=== PATIENT | female | born 1955 | race Two or more races ===

== ENCOUNTER 2023-01-22 11:00 | Inpatient (IN) | payer OTHER ==
[~2023-01-22] VITALS: Ht 152.4 cm; Wt 57.2 kg
[2023-01-22] MEDS ORDERED: TENORMIN25 MG PO (12:33)
[2023-01-22] MEDS ORDERED: ATACAND16 MG PO (12:33)
[2023-01-22] MEDS ORDERED: LIPI PO (12:34)
[2023-01-22] MEDS ORDERED: SYNTHROID112 MCG PO (12:34)
[2023-01-22] MEDS ORDERED: XIGDUO XR 10 M1 EAC1 PO (12:35)
[2023-01-28 11:25] LABS: HEMATOCRIT 35.3 % (36.0-45.00); HEMOGLOBIN 11.4 g/dL (12.0-15.00); MEAN CELL VOLUME 78.7 fL (80.00-100.00); MEAN CORPUSCULAR HEMOGLOBIN 25.5 pg (27.00-32.0); MEAN CORPUSCULAR HGB CONC 32.4 g/dl (32.0-36.0); PLATELET COUNT 234 K/uL (150-450); RED BLOOD COUNT 4.49 M/uL (4.00-6.00)
[2023-01-28 12:05] LABS: ALBUMIN 3.2 gm/dL (3.4-5.0); CALCIUM 8.3 mg/dL (8.5-10.1); CREATININE SERUM 0.71 mg/dL (0.55-1.02); GFR 81.62; MAGNESIUM 2.1 mg/dL (1.8-2.4); POTASSIUM 4.17 mEq/L (3.5-5.1)
[2023-01-29 06:45] LABS: HEMATOCRIT 35.4 % (36.0-45.00); HEMOGLOBIN 11.6 g/dL (12.0-15.00); MEAN CORPUSCULAR HEMOGLOBIN 25.9 pg (27.00-32.0); MEAN CORPUSCULAR HGB CONC 32.7 g/dl (32.0-36.0); PLATELET COUNT 212 K/uL (150-450); RED BLOOD COUNT 4.48 M/uL (4.00-6.00); RED CELL DISTRIBUTION WIDTH 15.9 % (11.5-14.5)
[2023-01-29 07:01] LABS: ALBUMIN 3.1 gm/dL (3.4-5.0); CALCIUM 8.7 mg/dL (8.5-10.1); CREATININE SERUM 0.73 mg/dL (0.55-1.02); GFR 79.05; MAGNESIUM 2.3 mg/dL (1.8-2.4); PHOSPHOROUS 2.1 mg/dL (2.5-4.9); POTASSIUM 5.02 mEq/L (3.5-5.1)
[2023-01-31] MEDS ORDERED: NEURONTIN300 MG PO (15:41)
[2023-01-31] MEDS ORDERED: ACETAMINOPHEN500 M2 PO (15:41)
== END 2023-01-31 18:22 | disposition home or self-care (01) | DRG 331 ==
LOC: O/R 01-28 05:51 → SURG 01-28 05:51 → SURH 01-28 11:00 → SURG 01-31 18:22
PROVIDERS: ADMIT Surgery; ATTEND Surgery
PROC: 07BB4ZZ Excision of Mesenteric Lymphatic, Percutaneous Endoscopic Approach (ICD-10-PCS; 2023-01-28)
PROC: 0DBU4ZZ Excision of Omentum, Percutaneous Endoscopic Approach (ICD-10-PCS; 2023-01-28)
PROC: 0DTF4ZZ Resection of Right Large Intestine, Percutaneous Endoscopic Approach (ICD-10-PCS; principal; 2023-01-28 16:00)
DX: D12.2 Benign neoplasm of ascending colon (principal); D12.0 Benign neoplasm of cecum; R59.0 Localized enlarged lymph nodes; K57.30 Diverticulosis of large intestine without perforation or abscess without bleeding; I10 Essential (primary) hypertension; E03.9 Hypothyroidism, unspecified

== ENCOUNTER 2023-05-05 12:14 | Inpatient (IN) | payer OTHER ==
[~2023-05-05] VITALS: Wt 544.3 kg
[~2023-05-05 12:14] MED LIST: ACETAMINOPHEN500 M2 PO; ATACAND16 MG PO; LIPI PO; NEURONTIN300 MG PO; SYNTHROID112 MCG PO; TENORMIN25 MG PO; XIGDUO XR 10 M1 EAC1 PO
[2023-05-05] MEDS ORDERED: MORPHINE SULFATE 4 MG/ML CARTRIDGE IV ONE (14:45)
[2023-05-05] MEDS ORDERED: 0.9 % SODIUM CHLORIDE 500 ML IV SCH (14:45)
[2023-05-05 15:29] LABS: HEMATOCRIT 40.8 % (36.0-45.00); HEMOGLOBIN 13.2 g/dL (12.0-15.00); MEAN CELL VOLUME 78.2 fL (80.00-100.00); MEAN CORPUSCULAR HEMOGLOBIN 25.3 pg (27.00-32.0); MEAN CORPUSCULAR HGB CONC 32.3 g/dl (32.0-36.0); PLATELET COUNT 256 K/uL (150-450); RED BLOOD COUNT 5.22 M/uL (4.00-6.00); RED CELL DISTRIBUTION WIDTH 15.5 % (11.5-14.5)
[2023-05-05 15:52] LABS: ALBUMIN 3.6 gm/dL (3.4-5.0); BILIRUBIN TOTAL 1.85 mg/dL (0.3-1.2); BILIRUBIN,CONJUGATED 0.62 mg/dL (0.0-0.2); BILIRUBIN,UNCONJUGATED 1.23 mg/dL (0.0-0.6); CALCIUM 8.9 mg/dL (8.5-10.1); CREATININE SERUM 0.89 mg/dL (0.55-1.02); GFR 62.89; GLOBULINA 3.7 G/DL (2.4-3.5); POTASSIUM 4.75 mEq/L (3.5-5.1); TOTAL PROTEIN 7.3 gm/dL (6.4-8.2)
[2023-05-05 20:14] LABS: URINE APPEARANCE Clear; URINE BILIRRUBIN Negative (NEGATIVE); URINE BLOOD Small; URINE COLOR Yellow; URINE LEUKOCYTE Negative; URINE NITRATE Negative; URINE PROTEIN 30 (NEGATIVE); URINE UROBILINOGEN 0.2 E.U./dl
[2023-05-05 20:17] LABS: URINE BACTERIA 62.9 uL (0.0-1933); URINE EPITHELIAL CELLS 20.6 uL (0.0-38.8); URINE RBC 9.7 uL (0.0-20.8); URINE WBC 7.8 uL (0.0-23.2)
[2023-05-05 20:27] LABS: URINE GLUCOSE >=1000 MG/DL (NEGATIVE)
[2023-05-05] MEDS ORDERED: PIPERACILLIN/TAZOBACTAM SODIUM 3.375 GM VIAL IV ONE (21:00)
[2023-05-05 21:36] LABS: INR 1.2; PARTIAL THROMBOPLASTIN TIME 28.5 SECONDS (22.0-34.0); PROTHROMBIN TIME 12.4 SECONDS (9.0-11.5)
[2023-05-05] MEDS ORDERED: DEXTROSE 50 % IN WATER 0.5 G/ML DISP.SYRIN IV PRN (22:15)
[2023-05-05] MEDS ORDERED: MEPERIDINE HCL/PF 25 MG/ML VIAL IM PRN (22:15)
[2023-05-05] MEDS ORDERED: 0.9 % SODIUM CHLORIDE 1,000 ML IV SCH (22:15)
[2023-05-05] MEDS ORDERED: ENALAPRILAT DIHYDRATE 1.25 MG/ML VIAL IV PRN (22:15)
[2023-05-05] MEDS ORDERED: ONDANSETRON HCL 4 MG in 0.9 % SODIUM CHLORIDE 50 ML IV PRN (22:15)
[2023-05-05] MEDS ORDERED: INSULIN LISPRO 1,000 UNIT/10 ML UNITS SUBCUTANEO PRN (22:15)
[2023-05-06] MEDS ORDERED: PIPERACILLIN/TAZOBACTAM SODIUM 3.375 GM in DEXTROSE 5 % IN WATER 100 ML IV SCH
[2023-05-06] MEDS ORDERED: LEVOTHYROXINE SODIUM 112 MCG TABLET PO SCH (06:00)
[2023-05-06] MEDS ORDERED: FAMOTIDINE/PF 20 MG/2 ML VIAL ONE (07:34)
[2023-05-06] MEDS ORDERED: FAMOTIDINE/PF 20 MG in 0.9 % SODIUM CHLORIDE 8 ML IV PUSH SCH (09:00)
[2023-05-06 15:03] LABS: CALCIUM 8.2 mg/dL (8.5-10.1); CREATININE SERUM 0.66 mg/dL (0.55-1.02); GFR 88.8; POTASSIUM 3.46 mEq/L (3.5-5.1)
[2023-05-06] MEDS ORDERED: ATENOLOL 25 MG TABLET PO SCH (17:00)
[2023-05-06] MEDS ORDERED: AA 4.25%/CAL/LYTES/DEXT 5% 1,000 ML PERIFERAL SCH (17:00)
[2023-05-06] MEDS ORDERED: ENOXAPARIN SODIUM 40 MG/0.4 ML SYRINGE SUBCUTANEO SCH (17:00)
[2023-05-07] MEDS ORDERED: MORPHINE SULFATE 4 MG/ML CARTRIDGE IV SCH
[2023-05-07] MEDS ORDERED: ACETAMINOPHEN 500 MG GEL..CAP PO SCH
[2023-05-07 07:17] LABS: ALBUMIN 2.5 gm/dL (3.4-5.0); BILIRUBIN TOTAL 0.92 mg/dL (0.3-1.2); CREATININE SERUM 0.7 mg/dL (0.55-1.02); GFR 82.97; GLOBULINA 3.3 G/DL (2.4-3.5); MAGNESIUM 2.6 mg/dL (1.8-2.4); POTASSIUM 4.31 mEq/L (3.5-5.1); TOTAL PROTEIN 5.8 gm/dL (6.4-8.2)
[2023-05-07 07:25] LABS: HEMATOCRIT 38.4 % (36.0-45.00); HEMOGLOBIN 12.5 g/dL (12.0-15.00); MEAN CELL VOLUME 77.6 fL (80.00-100.00); MEAN CORPUSCULAR HEMOGLOBIN 25.4 pg (27.00-32.0); MEAN CORPUSCULAR HGB CONC 32.7 g/dl (32.0-36.0); RED BLOOD COUNT 4.95 M/uL (4.00-6.00); RED CELL DISTRIBUTION WIDTH 15.8 % (11.5-14.5)
[2023-05-07 08:09] LABS: C-REACTIVE PROTEIN 28.1 MG/DL (0.00-0.29); PHOSPHOROUS 1.7 mg/dL (2.5-4.9)
[2023-05-07 08:15] LABS: PLATELET COUNT 256 K/uL (150-450)
[2023-05-07] MEDS ORDERED: POTASSIUM PHOS,M-BASIC-D-BASIC 3 MM/ML VIAL IV NR (09:39)
[2023-05-07] MEDS ORDERED: LIDOCAINE HCL 1%/Epi 20ML VIAL IJ ONE (11:53)
[2023-05-07] MEDS ORDERED: INSULIN REGULAR, HUMAN 300 UNITS/3 ML UNITS ONE (11:53)
[2023-05-07] MEDS ORDERED: BUPIVACAINE HCL/PF 0.5% 30ML ML ONE (11:53)
[2023-05-07] MEDS ORDERED: NITROGLYCERIN 0.2 MG/HR PATCH.TD24 TD ONE ×2 (12:02→14:15)
[2023-05-07] MEDS ORDERED: MEROPENEM 500 MG/VIAL VIAL IV SCH (14:00)
[2023-05-07] MEDS ORDERED: SUGAMMADEX SODIUM 200 MG/2 ML VIAL IV ONE ×2 (14:29→15:15)
[2023-05-07] MEDS ORDERED: DEXTROSE 50 % IN WATER 0.5 G/ML DISP.SYRIN IV PRN (15:15)
[2023-05-07] MEDS ORDERED: MORPHINE SULFATE 4 MG/ML CARTRIDGE IV PRN (15:15)
[2023-05-07] MEDS ORDERED: ONDANSETRON HCL 2 MG/ML VIAL IV PRN (15:15)
[2023-05-07] MEDS ORDERED: VANCOMYCIN HCL 5 MG/ML REDILUIDO IV SCH (17:00)
[2023-05-07 17:36] LABS: HEMATOCRIT 40.7 % (36.0-45.00); HEMOGLOBIN 13.2 g/dL (12.0-15.00); MEAN CELL VOLUME 78.2 fL (80.00-100.00); MEAN CORPUSCULAR HEMOGLOBIN 25.4 pg (27.00-32.0); MEAN CORPUSCULAR HGB CONC 32.4 g/dl (32.0-36.0); PLATELET COUNT 307 K/uL (150-450); RED BLOOD COUNT 5.21 M/uL (4.00-6.00); RED CELL DISTRIBUTION WIDTH 16.1 % (11.5-14.5)
[2023-05-07] MEDS ORDERED: FAMOTIDINE/PF 20 MG/2 ML VIAL ONE ×2 (17:40→20:52)
[2023-05-07 18:24] LABS: ALBUMIN 1.9 gm/dL (3.4-5.0); CALCIUM 7.5 mg/dL (8.5-10.1); CREATININE SERUM 0.86 mg/dL (0.55-1.02); GFR 65.42; MAGNESIUM 2.2 mg/dL (1.8-2.4); PHOSPHOROUS 2.8 mg/dL (2.5-4.9); POTASSIUM 3.69 mEq/L (3.5-5.1)
[2023-05-07] MEDS ORDERED: FAMOTIDINE/PF 20 MG/2 ML VIAL IV PUSH SCH (21:00)
[2023-05-08] MEDS ORDERED: VANCOMYCIN HCL 1,000 MG VIAL ONE (04:37)
[2023-05-08] MEDS ORDERED: FAMOTIDINE/PF 20 MG/2 ML VIAL ONE ×3 (04:38→16:56)
[2023-05-08 07:18] LABS: HEMATOCRIT 39.4 % (36.0-45.00); HEMOGLOBIN 12.8 g/dL (12.0-15.00); MEAN CELL VOLUME 76.8 fL (80.00-100.00); MEAN CORPUSCULAR HGB CONC 32.6 g/dl (32.0-36.0); PLATELET COUNT 224 K/uL (150-450); RED BLOOD COUNT 5.13 M/uL (4.00-6.00)
[2023-05-08 07:38] LABS: ALBUMIN 1.5 gm/dL (3.4-5.0); CALCIUM 7.2 mg/dL (8.5-10.1); CREATININE SERUM 0.94 mg/dL (0.55-1.02); GFR 59.04; MAGNESIUM 2.1 mg/dL (1.8-2.4); POTASSIUM 3.84 mEq/L (3.5-5.1)
[2023-05-08 08:16] LABS: PHOSPHOROUS 1.4 mg/dL (2.5-4.9)
[2023-05-08] MEDS ORDERED: RINGERS SOLUTION,LACTATED 1,000 ML IV SCH (08:30)
[2023-05-08] MEDS ORDERED: KETOROLAC TROMETHAMINE 30 MG VIAL ONE (10:29)
[2023-05-08] MEDS ORDERED: INSULIN LISPRO 1,000 UNIT/10 ML UNITS SUBCUTANEO ONE ×2 (11:50→19:47)
[2023-05-08] MEDS ORDERED: POTASSIUM PHOS M BASIC D BASIC IV ONE (12:00)
[2023-05-08] MEDS ORDERED: AA 4.25%/CAL/LYTES/DEXT 5% 1,000 ML PERIFERAL SCH (17:00)
[2023-05-08] MEDS ORDERED: ENOXAPARIN SODIUM 40 MG/0.4 ML SYRINGE SUBCUTANEO SCH (17:00)
[2023-05-09 06:56] LABS: HEMATOCRIT 32.1 % (36.0-45.00); HEMOGLOBIN 10.4 g/dL (12.0-15.00); MEAN CELL VOLUME 77.3 fL (80.00-100.00); MEAN CORPUSCULAR HGB CONC 32.4 g/dl (32.0-36.0); PLATELET COUNT 171 K/uL (150-450); RED BLOOD COUNT 4.15 M/uL (4.00-6.00); RED CELL DISTRIBUTION WIDTH 16.2 % (11.5-14.5)
[2023-05-09] MEDS ORDERED: SODIUM CHLORIDE 0.45 % 1,000 ML IV SCH (07:15)
[2023-05-09 07:31] LABS: ALBUMIN 1.4 gm/dL (3.4-5.0); BILIRUBIN TOTAL 0.5 mg/dL (0.3-1.2); CALCIUM 7.6 mg/dL (8.5-10.1); CREATININE SERUM 0.57 mg/dL (0.55-1.02); GFR 105.17; MAGNESIUM 2.8 mg/dL (1.8-2.4); POTASSIUM 3.62 mEq/L (3.5-5.1); TOTAL PROTEIN 4.4 gm/dL (6.4-8.2)
[2023-05-09 07:52] LABS: PHOSPHOROUS 1.3 mg/dL (2.5-4.9)
[2023-05-09] MEDS ORDERED: DEXTROSE 5 % IN WATER 1,000 ML IV SCH (08:00)
[2023-05-09] MEDS ORDERED: ENOXAPARIN SODIUM 40 MG/0.4 ML SYRINGE SUBCUTANEO SCH (09:00)
[2023-05-09] MEDS ORDERED: CHLORHEXIDINE GLUCONATE 120 ML BOTTLE TOP ONE (09:34)
[2023-05-09] MEDS ORDERED: POTASSIUM PHOS,M-BASIC-D-BASIC 3 MM/ML VIAL IV NR (10:37)
[2023-05-09] MEDS ORDERED: VANCOMYCIN HCL 1,000 MG VIAL IV SCH (17:00)
[2023-05-10] MEDS ORDERED: MORPHINE SULFATE 4 MG/ML VIAL IV ONE (04:30)
[2023-05-10] MEDS ORDERED: MORPHINE SULFATE 4 MG/ML VIAL IV PRN (19:15)
[2023-05-10] MEDS ORDERED: MORPHINE SULFATE 2 MG/ML CARTRIDGE IV PRN (20:00)
[2023-05-11 07:27] LABS: ALBUMIN 1.4 gm/dL (3.4-5.0); BILIRUBIN TOTAL 0.58 mg/dL (0.3-1.2); CALCIUM 7.5 mg/dL (8.5-10.1); CREATININE SERUM 0.47 mg/dL (0.55-1.02); GFR 131.39; GLOBULINA 2.7 G/DL (2.4-3.5); TOTAL PROTEIN 4.1 gm/dL (6.4-8.2)
[2023-05-11 08:01] LABS: POTASSIUM 2.98 mEq/L (3.5-5.1)
[2023-05-11] MEDS ORDERED: POTASSIUM CHLORIDE 20MEQ/100ML H2O PB IV ONE (11:20)
[2023-05-12 06:14] LABS: HEMATOCRIT 28.6 % (36.0-45.00); HEMOGLOBIN 9.4 g/dL (12.0-15.00); MEAN CELL VOLUME 76.1 fL (80.00-100.00); MEAN CORPUSCULAR HEMOGLOBIN 25.1 pg (27.00-32.0); MEAN CORPUSCULAR HGB CONC 32.9 g/dl (32.0-36.0); PLATELET COUNT 256 K/uL (150-450); RED BLOOD COUNT 3.76 M/uL (4.00-6.00); RED CELL DISTRIBUTION WIDTH 15.6 % (11.5-14.5)
[2023-05-12 06:57] LABS: ALBUMIN 1.6 gm/dL (3.4-5.0); BILIRUBIN TOTAL 0.57 mg/dL (0.3-1.2); BILIRUBIN,CONJUGATED 0.13 mg/dL (0.0-0.2); BILIRUBIN,UNCONJUGATED 0.44 mg/dL (0.0-0.6); CALCIUM 7.9 mg/dL (8.5-10.1); CHOL HDL RATIO 5.6 (0-5.0); CREATININE SERUM 0.52 mg/dL (0.55-1.02); GFR 116.92; GLOBULINA 3.2 G/DL (2.4-3.5); MAGNESIUM 2.1 mg/dL (1.8-2.4); PHOSPHOROUS 2.5 mg/dL (2.5-4.9); TOTAL PROTEIN 4.8 gm/dL (6.4-8.2)
[2023-05-12 07:10] LABS: INR 1.04; PARTIAL THROMBOPLASTIN TIME 28.4 SECONDS (22.0-34.0); PROTHROMBIN TIME 10.9 SECONDS (9.0-11.5)
[2023-05-12 07:31] LABS: POTASSIUM 2.99 mEq/L (3.5-5.1)
[2023-05-12] MEDS ORDERED: POTASSIUM CHLORIDE/D5-0.45NACL 1,000 ML IV SCH (08:00)
[2023-05-12 08:40] LABS: UREA CLEARANCE 51.8 ML/MIN
[2023-05-12] MEDS ORDERED: FLUCONAZOLE 150 MG TABLET PO ONE (16:45)
[2023-05-12] MEDS ORDERED: HYOSCYAMINE SULFATE 0.125 MG TAB.SUBL SL SCH (17:00)
[2023-05-12] MEDS ORDERED: NYSTATIN 5 ML BLIST.PACK PO SCH (17:00)
[2023-05-13 07:06] LABS: ALBUMIN 1.6 gm/dL (3.4-5.0); CREATININE SERUM 0.47 mg/dL (0.55-1.02); GFR 131.39; POTASSIUM 3.17 mEq/L (3.5-5.1)
[2023-05-13] MEDS ORDERED: AMLODIPINE BESYLATE 5 MG TABLET PO SCH (09:00)
[2023-05-13] MEDS ORDERED: AMINO ACIDS/PROTEIN HYDROLYS 30 ML BLIST.PACK PO SCH (17:00)
[2023-05-14] MEDS ORDERED: PANTOPRAZOLE SODIUM 40 MG TABLET.DR PO SCH (09:00)
[2023-05-14] MEDS ORDERED: SUCRALFATE 1 G TABLET PO SCH (09:00)
[2023-05-14 13:11] LABS: ALBUMIN 1.9 gm/dL (3.4-5.0); CALCIUM 8.4 mg/dL (8.5-10.1); CREATININE SERUM 0.57 mg/dL (0.55-1.02); GFR 105.17; PHOSPHOROUS 2.5 mg/dL (2.5-4.9); POTASSIUM 3.98 mEq/L (3.5-5.1)
[2023-05-14] MEDS ORDERED: FUROsemide 20 MG/2 ML VIAL IV SCH (22:10)
[2023-05-15] MEDS ORDERED: AMINO ACIDS 1 EACH TABLET PO SCH (17:00)
[2023-05-16] MEDS ORDERED: TRAM1TAB98 PO (09:24)
[2023-05-16] MEDS ORDERED: CARAFATE1 GM PO (09:24)
[2023-05-16] MEDS ORDERED: PRILOSEC OTC20 MG PO (09:24)
== END 2023-05-16 13:14 | disposition home or self-care (01) | DRG 329 ==
LOC: ER 12:14 → SURG 22:17 → O/R 05-08 08:11 → ICU 05-08 23:10 → SURG 05-10 13:53
PROVIDERS: Emergency Medicine; General Practice; Internal Medicine; Internal Medicine Geriatric Medicine; Internal Medicine Infectious Disease; Internal Medicine Nephrology; ADMIT Surgery; ATTEND Surgery
PROC: 3E0436Z Introduction of Nutritional Substance into Central Vein, Percutaneous Approach (ICD-10-PCS; 2023-05-06)
PROC: 02HV33Z Insertion of Infusion Device into Superior Vena Cava, Percutaneous Approach (ICD-10-PCS; 2023-05-06)
PROC: 0DBK4ZZ Excision of Ascending Colon, Percutaneous Endoscopic Approach (ICD-10-PCS; 2023-05-07)
PROC: 0DBB4ZZ Excision of Ileum, Percutaneous Endoscopic Approach (ICD-10-PCS; 2023-05-07)
PROC: 0DJD0ZZ Inspection of Lower Intestinal Tract, Open Approach (ICD-10-PCS; 2023-05-07)
PROC: 0D9W0ZZ Drainage of Peritoneum, Open Approach (ICD-10-PCS; 2023-05-07)
PROC: 0D1B0Z4 Bypass Ileum to Cutaneous, Open Approach (ICD-10-PCS; 2023-05-07)
PROC: BW21Y0Z Computerized Tomography (CT Scan) of Abdomen and Pelvis using Other Contrast, Unenhanced and Enhanced (ICD-10-PCS; 2023-05-07)
PROC: 0DBL0ZZ Excision of Transverse Colon, Open Approach (ICD-10-PCS; principal; 2023-05-07 10:00)
DX: K91.89 Other postprocedural complications and disorders of digestive system (principal); K65.8 Other peritonitis; K57.20 Diverticulitis of large intestine with perforation and abscess without bleeding; K56.609 Unspecified intestinal obstruction, unspecified as to partial versus complete obstruction; K55.8 Other vascular disorders of intestine; E87.0 Hyperosmolality and hypernatremia; E87.6 Hypokalemia; I49.9 Cardiac arrhythmia, unspecified; R60.0 Localized edema; I10 Essential (primary) hypertension; E11.9 Type 2 diabetes mellitus without complications; E03.9 Hypothyroidism, unspecified; Z79.84 Long term (current) use of oral hypoglycemic drugs; Z79.4 Long term (current) use of insulin

== ENCOUNTER 2024-05-26 11:45 | Inpatient (IN) | payer OTHER ==
[~2024-05-26] VITALS: Ht 152.4 cm; Wt 53.5 kg
[~2024-05-26 11:45] MED LIST changes: +CARAFATE1 GM PO; +PRILOSEC OTC20 MG PO; +TRAM1TAB98 PO
[2024-06-01] MEDS ORDERED: CEFTRIAXONE SODIUM 2,000 MG VIAL IV ONE (14:00)
[2024-06-01] MEDS ORDERED: METRONIDAZOLE/SODIUM CHLORIDE 500 MG/100 ML PIGGYBACK IV ONE (14:00)
[2024-06-01] MEDS ORDERED: LIDOCAINE HCL 1%/EPINEPHRINE 20ML VIAL IJ ONE (14:00)
[2024-06-01] MEDS ORDERED: CHLORHEXIDINE GLUCONATE 120 ML BOTTLE TOP ONE (14:00)
[2024-06-01] MEDS ORDERED: BUPIVACAINE HCL 30 ML VIAL IJ ONE (14:00)
[2024-06-01] MEDS ORDERED: DEXTROSE 50 % IN WATER 0.5 G/ML DISP.SYRIN IV PRN ×2 (15:15→18:30)
[2024-06-01] MEDS ORDERED: ONDANSETRON HCL 2 MG/ML VIAL IV PRN (15:15)
[2024-06-01] MEDS ORDERED: OxyCODONE HCL 5 MG TABLET (ROXICODONE) PO PRN (15:15)
[2024-06-01] MEDS ORDERED: MORPHINE SULFATE 4 MG/ML CARTRIDGE IV PRN (15:15)
[2024-06-01] MEDS ORDERED: RINGERS SOLUTION,LACTATED 1,000 ML IV SCH (15:15)
[2024-06-01] MEDS ORDERED: MORPHINE SULFATE 4 MG/ML VIAL IV ONE ×2 (16:10→16:40)
[2024-06-01 16:59] LABS: HEMATOCRIT 45.3 % (36.0-45.00); HEMOGLOBIN 14.7 g/dL (12.0-15.00); MEAN CELL VOLUME 87.3 fL (80.00-100.00); MEAN CORPUSCULAR HEMOGLOBIN 28.3 pg (27.00-32.0); MEAN CORPUSCULAR HGB CONC 32.4 g/dl (32.0-36.0); PLATELET COUNT 249 K/uL (150-450); RED BLOOD COUNT 5.19 M/uL (4.00-6.00); RED CELL DISTRIBUTION WIDTH 13.8 % (11.5-14.5)
[2024-06-01] MEDS ORDERED: POLYETHYLENE GLYCOL 3350 17 GM BLIST.PACK PO SCH (17:00)
[2024-06-01] MEDS ORDERED: GABAPENTIN 300 MG CAPSULE PO SCH (17:00)
[2024-06-01 17:20] LABS: ALBUMIN 3.4 gm/dL (3.4-5.0); CREATININE SERUM 0.7 mg/dL (0.55-1.02); GFR 82.72; MAGNESIUM 1.7 mg/dL (1.8-2.4); PHOSPHOROUS 2.8 mg/dL (2.5-4.9); POTASSIUM 4.11 mEq/L (3.5-5.1)
[2024-06-01] MEDS ORDERED: INSULIN LISPRO 1,000 UNIT/10 ML UNITS SUBCUTANEO PRN (18:30)
[2024-06-01] MEDS ORDERED: ENALAPRILAT DIHYDRATE 1.25 MG/ML VIAL IV PRN (18:30)
[2024-06-01] MEDS ORDERED: ACETAMINOPHEN 500 MG GEL..CAP PO SCH (20:00)
[2024-06-01 20:58] LABS: ABG PH 7.361 (7.35-7.45); ABG PO2 74.1 mmHg (80-100); ABG pCO2 46.5 mmHg (35-45); BASE EXCESS -0.2 mmol/l; BICARBONATE 25.7 mmol/l (23-25); Tco2 27.2 mmol/l
[2024-06-01] MEDS ORDERED: CANDESARTAN CILEXETIL 16 MG TABLET PO SCH (21:00)
[2024-06-01] MEDS ORDERED: FAMOTIDINE/PF 20 MG/2 ML VIAL IV PUSH SCH (21:00)
[2024-06-01 21:20] LABS: allen test SATISFACTORY; puncture site RADIAL RIGHT
[2024-06-01 21:23] LABS: o2 21 %
[2024-06-02 00:03] VITALS: BP 101/56; O2SAT 95
[2024-06-02] MEDS ORDERED: SYNTHROID 112 MCG PO SCH (06:00)
[2024-06-02 07:37] LABS: HEMATOCRIT 40.9 % (36.0-45.00); HEMOGLOBIN 13.9 g/dL (12.0-15.00); MEAN CELL VOLUME 85.7 fL (80.00-100.00); MEAN CORPUSCULAR HEMOGLOBIN 29.1 pg (27.00-32.0); PLATELET COUNT 248 K/uL (150-450); RED BLOOD COUNT 4.77 M/uL (4.00-6.00); RED CELL DISTRIBUTION WIDTH 13.7 % (11.5-14.5)
[2024-06-02 08:03] LABS: CALCIUM 8.5 mg/dL (8.5-10.1); CREATININE SERUM 0.75 mg/dL (0.55-1.02); GFR 76.39; MAGNESIUM 1.8 mg/dL (1.8-2.4); PHOSPHOROUS 3.6 mg/dL (2.5-4.9); POTASSIUM 4.68 mEq/L (3.5-5.1)
[2024-06-02] MEDS ORDERED: ATENOLOL 25 MG TABLET PO SCH (09:00)
[2024-06-02] MEDS ORDERED: DEXTROSE 50 % IN WATER 0.5 G/ML DISP.SYRIN IV PRN (10:30)
[2024-06-02] MEDS ORDERED: INSULIN LISPRO 1,000 UNIT/10 ML UNITS SUBCUTANEO PRN (10:30)
[2024-06-02 14:28] VITALS: BP 143/75; O2SAT 99
[2024-06-02 16:00] VITALS: BP 114/52; O2SAT 98
[2024-06-02] MEDS ORDERED: ENOXAPARIN SODIUM 40 MG/0.4 ML SYRINGE SUBCUTANEO SCH (17:00)
[2024-06-03 00:24] VITALS: BP 98/61; O2SAT 90
[2024-06-03 06:44] LABS: HEMATOCRIT 35.6 % (36.0-45.00); HEMOGLOBIN 11.8 g/dL (12.0-15.00); MEAN CELL VOLUME 86.9 fL (80.00-100.00); MEAN CORPUSCULAR HEMOGLOBIN 28.8 pg (27.00-32.0); MEAN CORPUSCULAR HGB CONC 33.2 g/dl (32.0-36.0); PLATELET COUNT 199 K/uL (150-450); RED BLOOD COUNT 4.09 M/uL (4.00-6.00); RED CELL DISTRIBUTION WIDTH 14.3 % (11.5-14.5)
[2024-06-03 07:31] LABS: CALCIUM 8.3 mg/dL (8.5-10.1); CREATININE SERUM 0.77 mg/dL (0.55-1.02); GFR 74.11; PHOSPHOROUS 2.6 mg/dL (2.5-4.9); POTASSIUM 4.24 mEq/L (3.5-5.1)
[2024-06-03 08:00] VITALS: BP 122/70; O2SAT 93
[2024-06-03] MEDS ORDERED: ENOXAPARIN SODIUM 40 MG/0.4 ML SYRINGE SUBCUTANEO SCH (09:00)
[2024-06-03 12:00] VITALS: BP 130/64; O2SAT 94
[2024-06-03 15:30] VITALS: BP 132/79; O2SAT 94
[2024-06-03] MEDS ORDERED: PANTOPRAZOLE SODIUM 40 MG/VIAL VIAL IV STA (19:49)
[2024-06-04 01:26] VITALS: BP 137/74; O2SAT 97
[2024-06-04 08:00] VITALS: BP 131/72; O2SAT 92
[2024-06-04] MEDS ORDERED: PANTOPRAZOLE SODIUM 40 MG/VIAL VIAL IV STA (11:17)
[2024-06-04 16:00] VITALS: BP 112/62; O2SAT 98
[2024-06-04] MEDS ORDERED: SUCRALFATE 1 G TABLET PO SCH (21:00)
[2024-06-04] MEDS ORDERED: FAMOTIDINE/PF 20 MG/2 ML VIAL IV PUSH SCH (21:00)
[2024-06-05 00:37] VITALS: BP 123/65; O2SAT 94
[2024-06-05] MEDS ORDERED: PANTOPRAZOLE SODIUM 40 MG/VIAL VIAL IV SCH (06:00)
[2024-06-05 15:00] VITALS: BP 125/64; O2SAT 93
[2024-06-05 16:00] VITALS: BP 139/72; O2SAT 95
[2024-06-06 01:09] VITALS: BP 132/72; O2SAT 94
[2024-06-06] MEDS ORDERED: HYOSCYAMINE0.125 M1 SL (10:31)
[2024-06-06] MEDS ORDERED: INTESTINEX680 M1 PO (10:32)
[2024-06-06] MEDS ORDERED: TRAMADOL HCL50 MG PO (10:32)
[2024-06-06 12:52] VITALS: BP 116/64; O2SAT 100
== END 2024-06-06 13:51 | disposition home or self-care (01) | DRG 331 ==
LOC: SURH 06-01 07:00 → O/R 06-01 07:41 → SURH 06-01 11:45 → SURG 06-01 17:09
PROVIDERS: Internal Medicine Geriatric Medicine; ADMIT Surgery; ATTEND Surgery
PROC: 0DN80ZZ Release Small Intestine, Open Approach (ICD-10-PCS; 2024-06-01)
PROC: 0WQF0ZZ Repair Abdominal Wall, Open Approach (ICD-10-PCS; 2024-06-01)
PROC: 4A12X4Z Monitoring of Cardiac Electrical Activity, External Approach (ICD-10-PCS; 2024-06-01)
PROC: 0DJD4ZZ Inspection of Lower Intestinal Tract, Percutaneous Endoscopic Approach (ICD-10-PCS; 2024-06-01)
PROC: 0DBB0ZZ Excision of Ileum, Open Approach (ICD-10-PCS; principal; 2024-06-01 07:00)
DX: K43.2 Incisional hernia without obstruction or gangrene (principal); Z43.2 Encounter for attention to ileostomy; R59.0 Localized enlarged lymph nodes; K57.30 Diverticulosis of large intestine without perforation or abscess without bleeding; N73.6 Female pelvic peritoneal adhesions (postinfective); N99.4 Postprocedural pelvic peritoneal adhesions; K21.9 Gastro-esophageal reflux disease without esophagitis; G47.39 Other sleep apnea; Z53.31 Laparoscopic surgical procedure converted to open procedure